=== PATIENT | female | born 1990 | race Two or more races ===

== ENCOUNTER 2020-09-21 15:24 | Emergency (ER) | payer MEDICAID, OTHER ==
[~2020-09-21] VITALS: Ht 167.6 cm; Wt 92.0 kg
[2020-09-21 15:44] VITALS: BP 133/93
[2020-09-21] MEDS ORDERED: ONDANSETRON 4MG ODT PO ONE (16:00)
[2020-09-21 16:30] LABS: CLARITY URINE CLEAR (CLEAR); COLOR URINE YELLOW (YELLOW); KETONES URINE TRACE (NEGATIVE); LEUKOCYTE ESTERASE URINE TRACE (NEGATIVE); NITRITE URINE NEGATIVE (NEGATIVE); OCCULT BLOOD URINE NEGATIVE (NEGATIVE); PROTEIN URINE NEGATIVE (NEGATIVE); SPECIFIC GRAVITY URINE 1.028 (1.005-1.030); UROBILINOGEN URINE 0.2 E.U./dL (0.2-1.0)
[2020-09-21 18:16] LABS: BASOPHILS % 0.4 % (0.0-2.0); EOSINOPHILS % 0.2 % (0.0-5.0); HEMATOCRIT. 27.8 % (36.0-48.0); HEMOGLOBIN. 8.7 g/dL (12.0-16.0); LYMPHOCYTES % 23.3 % (20.0-50.0); MEAN CORPUSCULAR HEMOGLOBIN 20.1 pg (28.0-32.0); MEAN CORPUSCULAR VOLUME 64.2 fL (81.0-99.0); MEAN PLATELET VOLUME 7.2 fl (7.4-10.4); MONOCYTES % 6.7 % (2.0-8.0); NEUTROPHILS % 69.4 % (40.0-76.0); PLATELET 348 x1000/uL (130-400); RED BLOOD CELL COUNT 4.33 mill/uL (4.2-5.4); RED CELL DISTRIBUTION WIDTH 20.4 % (11.6-14.6)
[2020-09-21 18:23] LABS: CHLORIDE 106 mEq/L (98-107)
[2020-09-21] MEDS ORDERED: PREN-118 MT (19:00)
[2020-09-21] MEDS ORDERED: FLOV44 INH (19:00)
[2020-09-21] MEDS ORDERED: CEPH125S26 MT (19:00)
[2020-09-21] MEDS ORDERED: ONDA4TAB5 MT (19:05)
[2020-09-21 19:08] LABS: PLATELET ESTIMATE NORMAL
[2020-09-21 21:13] LABS: B-HCG QUANTITATIVE 88350 mIU/mL (<3)
== END 2020-09-21 19:24 | disposition home or self-care (01) ==
LOC: ER 15:24
DX: O23.41 Unspecified infection of urinary tract in pregnancy, first trimester (principal); O26.891 Other specified pregnancy related conditions, first trimester; J45.909 Unspecified asthma, uncomplicated; Z3A.08 8 weeks gestation of pregnancy; Z98.890 Other specified postprocedural states
CPT/HCPCS: 36415; 76801; 76817; 80048; 81003; 81025; 84702; 85025; 87077; 87086; 87186; 99284; Q0162

== ENCOUNTER 2021-04-01 23:43 | Inpatient (IN) | payer MEDICAID, OTHER ==
[~2021-04-01] VITALS: Ht 168.9 cm; Wt 95.7 kg
[~2021-04-01 23:43] MED LIST: CEPH125S26 MT; FLOV44 INH; ONDA4TAB5 MT; PREN-118 MT
[2021-04-02 01:39] LABS: BASOPHILS % 0.5 % (0.0-2.0); HEMATOCRIT. 29.5 % (36.0-48.0); HEMOGLOBIN. 9.5 g/dL (12.0-16.0); MEAN PLATELET VOLUME 8.6 fl (7.4-10.4); MONOCYTES % 5.4 % (2.0-8.0); NEUTROPHILS % 71.1 % (40.0-76.0); PLATELET 245 x1000/uL (130-400); RED BLOOD CELL COUNT 4.33 mill/uL (4.2-5.4); RED CELL DISTRIBUTION WIDTH 18.5 % (11.6-14.6)
[2021-04-02 01:41] LABS: CLARITY URINE CLOUDY (CLEAR); COLOR URINE YELLOW (YELLOW); KETONES URINE NEGATIVE (NEGATIVE); LEUKOCYTE ESTERASE URINE 2+ (NEGATIVE); NITRITE URINE NEGATIVE (NEGATIVE); OCCULT BLOOD URINE NEGATIVE (NEGATIVE); PROTEIN URINE NEGATIVE (NEGATIVE); SPECIFIC GRAVITY URINE 1.023 (1.005-1.030)
[2021-04-02 01:41] LABS: CHLORIDE 108 mEq/L (98-107)
[2021-04-02 02:00] LABS: D-DIMER 0.92 mg/L FEU (<0.50); INR 0.9; PARTIAL THROMBOPLASTIN TIME 26.9 sec (23.4-31.0); PROTHROMBIN TIME 9.9 sec (9.6-11.0)
[2021-04-02 03:10] LABS: PLATELET ESTIMATE NORMAL
[2021-04-02] MEDS ORDERED: CEFAZOLIN 2,000 MG in DEXT 5% WATER 100 ML IV ONE (04:30)
[2021-04-02] MEDS ORDERED: METHYLERGONOVINE MALEATE 0.2 MG/ML IM PRN (04:30)
[2021-04-02] MEDS ORDERED: CARBOPROST TROMETHAMINE 250 MCG/ML AMPUL IM PRN (04:30)
[2021-04-02] MEDS ORDERED: CITRIC ACID/SODIUM CITRATE SOLN 30ML UDC PO ONE (04:45)
[2021-04-02 05:21] LABS: HEPATITIS B SURFACE ANTIGEN NEGATIVE
[2021-04-02] MEDS: LACTATED RINGERS 1,000 ML IV SCH ×2 (05:30→07:05)
[2021-04-02] MEDS ORDERED: CEFAZOLIN SODIUM 1000MG/VIAL ONE (10:03)
[2021-04-02] MEDS ORDERED: FENTANYL CITRATE/PF 50MCG/ML 2ML VIAL ONE (10:03)
[2021-04-02] MEDS ORDERED: MORPHINE SULFATE/PF 1MG/ML 10ML AMP ONE (10:04)
[2021-04-02] MEDS ORDERED: MIDAZOLAM HCL 2 MG/2 ML VIAL ONE (10:26)
[2021-04-02] MEDS ORDERED: PHENYLEPHRINE HCL 10 MG/ML 1ML (IV VIAL) IV ONE (10:28)
[2021-04-02] MEDS ORDERED: TRANEXAMIC ACID 1,000 MG/10 ML IV ONE (10:30)
[2021-04-02] MEDS ORDERED: TRANEXAMIC ACID 1,000 MG in SODIUM CHLORIDE 0.9% 100 ML IV NR (10:45)
[2021-04-02] MEDS ORDERED: ONDANSETRON HCL 4MG/2ML INJ IV PRN (11:15)
[2021-04-02] MEDS ORDERED: MEPERIDINE HCL/PF 25MG/ML CPJ IV PRN (11:15)
[2021-04-02] MEDS ORDERED: BUTORPHANOL TARTRATE 2 MG/ML VIAL IV PRN (11:15)
[2021-04-02] MEDS ORDERED: LABETALOL 5MG/ML SYR 20 MG/4 ML SYRINGE IV PRN (11:15)
[2021-04-02] MEDS ORDERED: HYDROMORPHONE HCL/PF 2MG/ML CPJ IV PRN (11:15)
[2021-04-02] MEDS ORDERED: DIPHENHYDRAMINE 25MG CAPSULE PO PRN (11:15)
[2021-04-02] MEDS ORDERED: KETOROLAC 30MG/ML VIAL IV PRN ×2 (11:15→11:45)
[2021-04-02] MEDS ORDERED: MAGNESIUM 20 G PREMIX (L & D) 500 ML IV SCH (11:30)
[2021-04-02] MEDS ORDERED: BISACODYL 10MG SUPP PR PRN (11:45)
[2021-04-02] MEDS ORDERED: RHO(D) IMMUNE GLOBULIN 300 MCG/SYR IM PRN (11:45)
[2021-04-02] MEDS ORDERED: IBUPROFEN 400MG TABLET PO PRN (11:45)
[2021-04-02] MEDS ORDERED: DEXT 5%/LR + PITOCIN 20UNITS/L 1,000 ML IV SCH (11:45)
[2021-04-02] MEDS ORDERED: DEXT 5%/LR + PITOCIN 20UNITS/L 1,000 ML IV ONE (11:53)
[2021-04-02 13:01] LABS: *BENZODIAZEPINES SCREEN URINE NEGATIVE (NEGATIVE); *COCAINE SCREEN URINE NEGATIVE (NEGATIVE)
[2021-04-02 13:02] LABS: *BARBITURATES SCREEN URINE NEGATIVE (NEGATIVE); METHADONE URINE SCREEN NEGATIVE (NEGATIVE); OPIATES URINE SCREEN NEGATIVE (NEGATIVE); PHENCYCLIDINE URINE SCREEN NEGATIVE (NEGATIVE)
[2021-04-02 14:05] LABS: *AMPHETAMINES SCREEN URINE PRESUMTIVE POSITIVE (NEGATIVE); CANNABINOID URINE SCREEN PRESUMTIVE POSITIVE (NEGATIVE)
[2021-04-02 14:50] LABS: BASOPHILS % 0.3 % (0.0-2.0); HEMATOCRIT. 25.3 % (36.0-48.0); HEMOGLOBIN. 7.8 g/dL (12.0-16.0); LYMPHOCYTES % 11.6 % (20.0-50.0); MEAN CORPUSCULAR HEMOGLOBIN 21.5 pg (28.0-32.0); MEAN CORPUSCULAR VOLUME 70.1 fL (81.0-99.0); MEAN PLATELET VOLUME 8.6 fl (7.4-10.4); NEUTROPHILS % 85.1 % (40.0-76.0); PLATELET 188 x1000/uL (130-400); RED BLOOD CELL COUNT 3.61 mill/uL (4.2-5.4); RED CELL DISTRIBUTION WIDTH 18.9 % (11.6-14.6)
[2021-04-02 15:30] VITALS: BP 131/75
[2021-04-02 16:00] VITALS: BP 129/72
[2021-04-02 19:45] VITALS: BP 134/88
[2021-04-02 23:45] VITALS: BP 130/86
[2021-04-03 04:01] VITALS: BP 132/86
[2021-04-03 06:59] LABS: BASOPHILS % 0.3 % (0.0-2.0); EOSINOPHILS % 0.1 % (0.0-5.0); HEMATOCRIT. 23.5 % (36.0-48.0); HEMOGLOBIN. 7.5 g/dL (12.0-16.0); LYMPHOCYTES % 17.6 % (20.0-50.0); MEAN CORPUSCULAR VOLUME 68.5 fL (81.0-99.0); MEAN PLATELET VOLUME 8.6 fl (7.4-10.4); MONOCYTES % 5.1 % (2.0-8.0); NEUTROPHILS % 76.9 % (40.0-76.0); PLATELET 183 x1000/uL (130-400); RED BLOOD CELL COUNT 3.43 mill/uL (4.2-5.4); RED CELL DISTRIBUTION WIDTH 18.6 % (11.6-14.6)
[2021-04-03 07:30] VITALS: BP 134/72
[2021-04-03] MEDS: FERROUS SULFATE 325MG TABLET PO SCH ×2 (08:19→16:16)
[2021-04-03] MEDS: IBUPROFEN 800MG TABLET PO PRN ×3 (08:20→20:58)
[2021-04-03] MEDS: PRENATAL VIT/FE FUMARATE/FA TABLET PO SCH (08:20)
[2021-04-03 16:35] VITALS: BP 154/93
[2021-04-03 21:10] VITALS: BP 146/83
[2021-04-04] MEDS: IBUPROFEN 800MG TABLET PO PRN ×3 (03:54→19:56)
[2021-04-04 04:00] VITALS: BP 141/87
[2021-04-04 09:20] VITALS: BP 144/94
[2021-04-04] MEDS: PRENATAL VIT/FE FUMARATE/FA TABLET PO SCH (09:51)
[2021-04-04] MEDS: FERROUS SULFATE 325MG TABLET PO SCH (09:51)
[2021-04-04 16:00] VITALS: BP 141/84
[2021-04-04 19:50] VITALS: BP 141/86
[2021-04-05] MEDS ORDERED: FERR325T23 PO (06:26)
[2021-04-05] MEDS ORDERED: IBUP-2030 PO (06:26)
[2021-04-05] MEDS ORDERED: LABETALOL HCL 200MG TABLET PO SCH (09:00)
[2021-04-05 09:23] VITALS: BP 141/86
[2021-04-05] MEDS: IBUPROFEN 800MG TABLET PO PRN (09:23)
[2021-04-05] MEDS: FERROUS SULFATE 325MG TABLET PO SCH (09:23)
[2021-04-05] MEDS: PRENATAL VIT/FE FUMARATE/FA TABLET PO SCH (09:23)
[2021-04-11 17:09] LABS: AMPHETAMINE CONF URINE Positive (.); CANNABINOID CONFIRMATION URINE Positive (.)
== END 2021-04-05 13:35 | disposition home or self-care (01) | DRG 540 ==
LOC: 8 EST LDRP 23:43 → OBSVTOIN 23:43 → 8EST 04-02 16:49
PROVIDERS: ADMIT Obstetrics & Gynecology; ATTEND Obstetrics & Gynecology
PROC: 10D00Z1 Extraction of Products of Conception, Low, Open Approach (ICD-10-PCS; principal; 2021-04-02)
DX: O13.4 Gestational [pregnancy-induced] hypertension without significant proteinuria, complicating childbirth (principal); O99.324 Drug use complicating childbirth; R56.9 Unspecified convulsions; O34.211 Maternal care for low transverse scar from previous cesarean delivery; O14.94 Unspecified pre-eclampsia, complicating childbirth; O99.03 Anemia complicating the puerperium; F12.10 Cannabis abuse, uncomplicated; F15.10 Other stimulant abuse, uncomplicated; Z37.0 Single live birth; Z3A.37 37 weeks gestation of pregnancy; O99.354 Diseases of the nervous system complicating childbirth; Z20.822 Contact with and (suspected) exposure to COVID-19
CPT/HCPCS: 36415; 76805; 76818; 80053; 80305; 80349; 81003; 84550; 85025; 85379; 85384; 86592; 86593; 86703; 86762; 86780; 86850; 86900; 86920; 87340; 87426; 88307; 99281; J0690; J2250; J2274; J2370; J2590; J3010; J7050; J7060; J7120; A4315

== ENCOUNTER 2021-06-26 22:51 | Inpatient (IN) | payer MEDICAID ==
[~2021-06-26] VITALS: Ht 170.2 cm; Wt 84.5 kg
[~2021-06-26 22:51] MED LIST changes: -CEPH125S26 MT; +FERR325T23 PO; +IBUP-2030 PO
[2021-06-26] MEDS ORDERED: ONDANSETRON HCL 4MG/2ML INJ IV STA (23:17)
[2021-06-26] MEDS ORDERED: MORPHINE SULFATE 4 MG/ML CPJ (NOT FOR IM USE) IV STA (23:17)
[2021-06-26] MEDS ORDERED: SODIUM CHLORIDE 0.9% 1,000 ML IV ONE (23:30)
[2021-06-26] MEDS ORDERED: MORPHINE SULFATE 2 MG/ML CPJ (NOT FOR IM USE) IV NR (23:43)
[2021-06-26 23:48] LABS: BASOPHILS % 0.7 % (0.0-2.0); HEMATOCRIT. 33.5 % (36.0-48.0); HEMOGLOBIN. 10.2 g/dL (12.0-16.0); MEAN CORPUSCULAR HEMOGLOBIN 19.6 pg (28.0-32.0); MEAN CORPUSCULAR VOLUME 64.1 fL (81.0-99.0); MEAN PLATELET VOLUME 7.9 fl (7.4-10.4); MONOCYTES % 5.4 % (2.0-8.0); NEUTROPHILS % 72.9 % (40.0-76.0); PLATELET 459 x1000/uL (130-400); RED BLOOD CELL COUNT 5.23 mill/uL (4.2-5.4); RED CELL DISTRIBUTION WIDTH 19.7 % (11.6-14.6)
[2021-06-26 23:55] LABS: CHLORIDE 109 mEq/L (98-107)
[2021-06-26 23:57] LABS: INR 1.2; PROTHROMBIN TIME 12.9 sec (9.6-11.0)
[2021-06-26 23:59] LABS: BG BASE EXCESS 2.7 mmol/L (-2.0-2.0); BG CARBOXYHEMOGLOBIN 0.7 % (0.5-1.5); BG DEOXYHEMOGLOBIN 50.1 % (0.0-5.0); BG FRACTION INSPIRED OXYGEN 21; BG HCO3 ACT 27.6 mmol/L (22.0-26.0); BG METHEMOGLOBIN 0.4 % (0.0-1.5); BG OXYGEN SATURATION 49.3 % (92.0-98.5); BG OXYHEMOGLOBIN 48.8 % (94.0-97.0); BG PCO2 43.6 mmHg (35.0-45.0); BG PH 7.419 (7.350-7.450); BG PO2 < 30.3 mmHg (75.0-100.0); BG SAMPLE SITE RIGHT RADIAL; BG TOTAL HEMOGLOBIN 11.1 g/dL (12.0-18.0); BG VENT MODE ROOM AIR
[2021-06-27 00:07] LABS: CLARITY URINE TURBID (CLEAR); COLOR URINE DARK YELLOW (YELLOW); KETONES URINE NEGATIVE (NEGATIVE); LEUKOCYTE ESTERASE URINE TRACE (NEGATIVE); NITRITE URINE NEGATIVE (NEGATIVE); OCCULT BLOOD URINE NEGATIVE (NEGATIVE); PROTEIN URINE 2+ (NEGATIVE); SPECIFIC GRAVITY URINE 1.027 (1.005-1.030)
[2021-06-27 00:08] LABS: HCG SCREEN NEGATIVE
[2021-06-27] MEDS ORDERED: FUROSEMIDE 20MG/2ML VIAL IVP ONE (01:00)
[2021-06-27 02:18] LABS: PLATELET ESTIMATE INCREASED
[2021-06-27] MEDS ORDERED: ACETAMINOPHEN 325MG TABLET PO PRN (07:45)
[2021-06-27] MEDS ORDERED: ONDANSETRON HCL 4MG/2ML INJ IV PRN (07:45)
[2021-06-27] MEDS ORDERED: DIATR MEGLU/DIATRIZOATE SOLN 30ML PO SCH (07:45)
[2021-06-27] MEDS: FUROSEMIDE 20MG/2ML VIAL IVP SCH (11:46)
[2021-06-27 12:57] LABS: UCG SCREEN NEGATIVE
[2021-06-27 14:09] VITALS: BP 136/82
[2021-06-27 14:21] VITALS: BP 136/82
[2021-06-27 16:00] VITALS: BP 132/94
[2021-06-27] MEDS ORDERED: IPRATROPIUM/ALBUTEROL 0.5-3(2.5)MG/3ML NEB HHN PRN (16:15)
[2021-06-27] MEDS: GUAIFENESIN-DM 200MG-20MG/10ML UDC PO PRN (16:45)
[2021-06-27] MEDS: HYDROCODONE/ACETAMINOPHEN 5/325MG TABLET PO PRN (17:01)
[2021-06-27] MEDS ORDERED: IOHEXOL-300 100 ML BOTTLE ONE (17:24)
[2021-06-27 20:00] VITALS: BP 141/84
[2021-06-27] MEDS: IPRATROPIUM/ALBUTEROL 0.5-3(2.5)MG/3ML NEB HHN SCH ×2 (20:50→22:28)
[2021-06-27] MEDS: BUDESONIDE 0.5MG/2ML NEB HHN SCH ×2 (20:50→22:28)
[2021-06-27] MEDS ORDERED: NALOXONE HCL 0.4MG/ML VIAL IV PRN (23:30)
[2021-06-28] VITALS: BP 132/83
[2021-06-28] MEDS: IPRATROPIUM/ALBUTEROL 0.5-3(2.5)MG/3ML NEB HHN SCH ×3 (01:04→22:13)
[2021-06-28 04:00] VITALS: BP 141/87
[2021-06-28 08:00] VITALS: BP 114/82
[2021-06-28] MEDS: FUROSEMIDE 20MG/2ML VIAL IVP SCH (08:41)
[2021-06-28] MEDS: GUAIFENESIN-DM 200MG-20MG/10ML UDC PO PRN ×2 (08:41→16:43)
[2021-06-28] MEDS: ACETAMINOPHEN 325MG TABLET PO PRN ×2 (08:42→16:44)
[2021-06-28] MEDS: BUDESONIDE 0.5MG/2ML NEB HHN SCH ×2 (11:28→22:13)
[2021-06-28] MEDS: FUROSEMIDE 40MG/4ML VIAL IVP SCH ×2 (11:37→16:43)
[2021-06-28] MEDS: SPIRONOLACTONE 25MG TABLET PO SCH (11:38)
[2021-06-28 12:00] VITALS: BP 126/88
[2021-06-28 12:21] LABS: EOSINOPHILS % 0.2 % (0.0-5.0); HEMATOCRIT. 30.7 % (36.0-48.0); HEMOGLOBIN. 9.3 g/dL (12.0-16.0); LYMPHOCYTES % 22.3 % (20.0-50.0); MEAN CORPUSCULAR HEMOGLOBIN 19.6 pg (28.0-32.0); MEAN CORPUSCULAR VOLUME 64.9 fL (81.0-99.0); MONOCYTES % 5.8 % (2.0-8.0); NEUTROPHILS % 70.7 % (40.0-76.0); PLATELET 366 x1000/uL (130-400); RED BLOOD CELL COUNT 4.73 mill/uL (4.2-5.4); RED CELL DISTRIBUTION WIDTH 19.3 % (11.6-14.6)
[2021-06-28 12:28] LABS: CHLORIDE 105 mEq/L (98-107)
[2021-06-28 12:33] LABS: PHOSPHORUS 3.9 mg/dL (2.5-4.9)
[2021-06-28 14:56] LABS: METHADONE URINE SCREEN NEGATIVE (NEGATIVE); PHENCYCLIDINE URINE SCREEN NEGATIVE (NEGATIVE)
[2021-06-28 14:57] LABS: *BARBITURATES SCREEN URINE NEGATIVE (NEGATIVE); *BENZODIAZEPINES SCREEN URINE NEGATIVE (NEGATIVE); *COCAINE SCREEN URINE NEGATIVE (NEGATIVE)
[2021-06-28 15:11] LABS: *AMPHETAMINES SCREEN URINE PRESUMTIVE POSITIVE (NEGATIVE); CANNABINOID URINE SCREEN PRESUMTIVE POSITIVE (NEGATIVE); OPIATES URINE SCREEN PRESUMTIVE POSITIVE (NEGATIVE)
[2021-06-28 16:00] VITALS: BP 117/72
[2021-06-28] MEDS: LOSARTAN POTASSIUM 25 MG TABLET PO SCH (17:09)
[2021-06-28 20:00] VITALS: BP 105/62
[2021-06-29] VITALS: BP 112/68
[2021-06-29 04:00] VITALS: BP 116/75
[2021-06-29] MEDS: IPRATROPIUM/ALBUTEROL 0.5-3(2.5)MG/3ML NEB HHN SCH ×2 (04:34→13:37)
[2021-06-29] MEDS: FUROSEMIDE 40MG/4ML VIAL IVP SCH ×2 (06:49→16:49)
[2021-06-29 08:00] VITALS: BP 101/54
[2021-06-29] MEDS: SPIRONOLACTONE 25MG TABLET PO SCH (08:31)
[2021-06-29] MEDS: LOSARTAN POTASSIUM 25 MG TABLET PO SCH (08:34)
[2021-06-29] MEDS: HYDROCODONE/ACETAMINOPHEN 5/325MG TABLET PO PRN (09:48)
[2021-06-29 10:44] LABS: BASOPHILS % 0.4 % (0.0-2.0); EOSINOPHILS % 0.5 % (0.0-5.0); HEMATOCRIT. 26.8 % (36.0-48.0); HEMOGLOBIN. 8.3 g/dL (12.0-16.0); LYMPHOCYTES % 17.9 % (20.0-50.0); MEAN CORPUSCULAR HEMOGLOBIN 19.8 pg (28.0-32.0); MEAN CORPUSCULAR VOLUME 64.1 fL (81.0-99.0); MEAN PLATELET VOLUME 7.9 fl (7.4-10.4); MONOCYTES % 7.4 % (2.0-8.0); NEUTROPHILS % 73.8 % (40.0-76.0); PLATELET 309 x1000/uL (130-400); RED BLOOD CELL COUNT 4.18 mill/uL (4.2-5.4); RED CELL DISTRIBUTION WIDTH 19.4 % (11.6-14.6)
[2021-06-29 10:55] LABS: CHLORIDE 104 mEq/L (98-107)
[2021-06-29 11:00] LABS: PHOSPHORUS 3.9 mg/dL (2.5-4.9)
[2021-06-29 11:01] LABS: TOTAL IRON BINDING CAPACITY 365 ug/dL (250-450)
[2021-06-29 11:18] LABS: FOLIC ACID (FOLATE) SERUM 10.4 ng/mL (>5.38)
[2021-06-29 12:00] VITALS: BP 102/63
[2021-06-29] MEDS ORDERED: ALBU18HF2 IH ×2 (13:51)
[2021-06-29] MEDS ORDERED: FLUT1AER4 INH ×2 (13:51)
[2021-06-29] MEDS ORDERED: PROM6.2514 MT ×2 (13:51)
[2021-06-29 16:00] VITALS: BP 103/48
[2021-06-29 20:00] VITALS: BP 114/68
[2021-06-30] VITALS: BP 112/53
[2021-06-30 04:00] VITALS: BP 103/63
[2021-06-30] MEDS: FUROSEMIDE 40MG/4ML VIAL IVP SCH (05:02)
[2021-06-30 08:04] VITALS: BP 105/68
[2021-06-30 08:15] LABS: BASOPHILS % 0.7 % (0.0-2.0); EOSINOPHILS % 0.5 % (0.0-5.0); HEMATOCRIT. 29.1 % (36.0-48.0); HEMOGLOBIN. 8.9 g/dL (12.0-16.0); LYMPHOCYTES % 27.7 % (20.0-50.0); MEAN CORPUSCULAR HEMOGLOBIN 19.5 pg (28.0-32.0); MEAN CORPUSCULAR VOLUME 63.6 fL (81.0-99.0); MEAN PLATELET VOLUME 8.1 fl (7.4-10.4); MONOCYTES % 8.8 % (2.0-8.0); NEUTROPHILS % 62.3 % (40.0-76.0); PLATELET 342 x1000/uL (130-400); RED BLOOD CELL COUNT 4.57 mill/uL (4.2-5.4); RED CELL DISTRIBUTION WIDTH 19.4 % (11.6-14.6)
[2021-06-30 08:37] LABS: CHLORIDE 103 mEq/L (98-107)
[2021-06-30] MEDS: IPRATROPIUM/ALBUTEROL 0.5-3(2.5)MG/3ML NEB HHN SCH ×2 (08:40→13:28)
[2021-06-30] MEDS: BUDESONIDE 0.5MG/2ML NEB HHN SCH (08:42)
[2021-06-30 08:43] LABS: PHOSPHORUS 4.2 mg/dL (2.5-4.9)
[2021-06-30] MEDS ORDERED: FERROUS SULFATE 325MG TABLET PO SCH (09:00)
[2021-06-30] MEDS: LOSARTAN POTASSIUM 25 MG TABLET PO SCH (09:00)
[2021-06-30] MEDS: SPIRONOLACTONE 25MG TABLET PO SCH (09:31)
[2021-06-30] MEDS: ACETAMINOPHEN 325MG TABLET PO PRN (09:39)
[2021-06-30 12:00] VITALS: BP 107/68
[2021-06-30] MEDS ORDERED: SPIR25TA PO (14:27)
[2021-06-30] MEDS ORDERED: LOSA25TA3 PO (14:27)
[2021-06-30] MEDS ORDERED: FURO40TA5 PO (14:27)
[2021-06-30] MEDS ORDERED: FERR-63 PO (14:27)
[2021-06-30] MEDS ORDERED: TOPUD PO (14:27)
[2021-06-30] MEDS ORDERED: ALBU18HF2 IH (14:35)
[2021-06-30] MEDS ORDERED: FLUT1AER4 INH (14:35)
[2021-06-30] MEDS ORDERED: PROM6.254 MT (14:35)
[2021-06-30 14:41] VITALS: BP 122/71
[2021-06-30] MEDS ORDERED: FUROSEMIDE 40MG TABLET PO SCH (18:00)
== END 2021-06-30 16:32 | disposition home or self-care (01) | DRG 194 ==
LOC: ER 23:20 → MICUSO 06-27 02:31 → SUPCPDRO 06-27 07:35 → 7EST 06-27 14:28
PROVIDERS: ADMIT Internal Medicine; ATTEND Internal Medicine
DX: I11.0 Hypertensive heart disease with heart failure (principal); J96.01 Acute respiratory failure with hypoxia; E87.2 Acidosis; E44.0 Moderate protein-calorie malnutrition; I27.29 Other secondary pulmonary hypertension; J45.901 Unspecified asthma with (acute) exacerbation; I31.3 Pericardial effusion (noninflammatory); I50.21 Acute systolic (congestive) heart failure; J20.9 Acute bronchitis, unspecified; F12.10 Cannabis abuse, uncomplicated; D50.9 Iron deficiency anemia, unspecified; D64.9 Anemia, unspecified; F15.10 Other stimulant abuse, uncomplicated; F17.210 Nicotine dependence, cigarettes, uncomplicated; I42.0 Dilated cardiomyopathy; I49.3 Ventricular premature depolarization; Z20.822 Contact with and (suspected) exposure to COVID-19; F19.10 Other psychoactive substance abuse, uncomplicated; R04.2 Hemoptysis; J84.9 Interstitial pulmonary disease, unspecified; Z66 Do not resuscitate; I34.0 Nonrheumatic mitral (valve) insufficiency; I36.1 Nonrheumatic tricuspid (valve) insufficiency; Z98.891 History of uterine scar from previous surgery; Z82.49 Family history of ischemic heart disease and other diseases of the circulatory system; Z79.1 Long term (current) use of non-steroidal anti-inflammatories (NSAID); Z79.899 Other long term (current) drug therapy; Z68.29 Body mass index [BMI] 29.0-29.9, adult
CPT/HCPCS: 36415; 36600; 71045; 71260; 74177; 76830; 76856; 80048; 80053; 80305; 81003; 81025; 82375; 82607; 82728; 82746; 82805; 83540; 83550; 83605; 83735; 83880; 84100; 84439; 84443; 84484; 84703; 85025; 85044; 87426; 93005; 93306; 93970; 94640; 99285; J1940; J2270; J2405; J7030; J7626; Q9967

== ENCOUNTER 2021-08-09 19:04 | Emergency (ER) | payer MEDICAID ==
[~2021-08-09] VITALS: Ht 170.2 cm; Wt 80.0 kg
[~2021-08-09 19:04] MED LIST changes: +ALBU18HF2 IH; +FERR-63 PO; -FERR325T23 PO; -FLOV44 INH; +FLUT1AER4 INH; +FURO40TA5 PO; -IBUP-2030 PO; +LOSA25TA3 PO; -ONDA4TAB5 MT; -PREN-118 MT; +PROM6.254 MT; +SPIR25TA PO; +TOPUD PO
[2021-08-09 22:05] LABS: BASOPHILS % 1.5 % (0.0-2.0); EOSINOPHILS % 0.5 % (0.0-5.0); HEMOGLOBIN. 9.7 g/dL (12.0-16.0); LYMPHOCYTES % 27.7 % (20.0-50.0); MEAN CORPUSCULAR HEMOGLOBIN 20.5 pg (28.0-32.0); MEAN CORPUSCULAR VOLUME 65.8 fL (81.0-99.0); MEAN PLATELET VOLUME 8.8 fl (7.4-10.4); MONOCYTES % 6.3 % (2.0-8.0); PLATELET 322 x1000/uL (130-400); RED BLOOD CELL COUNT 4.72 mill/uL (4.2-5.4); RED CELL DISTRIBUTION WIDTH 21.6 % (11.6-14.6)
[2021-08-09 22:10] LABS: CHLORIDE 110 mEq/L (98-107)
[2021-08-09 22:24] LABS: HCG SCREEN NEGATIVE
[2021-08-09 22:33] LABS: PLATELET ESTIMATE NORMAL
[2021-08-09] MEDS ORDERED: FUROSEMIDE 20MG/2ML VIAL IVP ONE (23:00)
[2021-08-09 23:05] LABS: *AMPHETAMINES SCREEN URINE NEGATIVE (NEGATIVE); *BARBITURATES SCREEN URINE NEGATIVE (NEGATIVE); *BENZODIAZEPINES SCREEN URINE NEGATIVE (NEGATIVE)
[2021-08-09 23:06] LABS: *COCAINE SCREEN URINE NEGATIVE (NEGATIVE); METHADONE URINE SCREEN NEGATIVE (NEGATIVE); OPIATES URINE SCREEN NEGATIVE (NEGATIVE); PHENCYCLIDINE URINE SCREEN NEGATIVE (NEGATIVE)
[2021-08-09 23:10] LABS: CANNABINOID URINE SCREEN PRESUMTIVE POSITIVE (NEGATIVE)
[2021-08-10 01:49] VITALS: BP 131/86
[2021-08-10] MEDS ORDERED: IOHEXOL-350 100 ML BOTTLE ONE (06:37)
== END 2021-08-10 01:48 | disposition home or self-care (01) ==
LOC: ER 19:04
DX: I11.0 Hypertensive heart disease with heart failure (principal); I50.9 Heart failure, unspecified; R06.02 Shortness of breath; Z98.890 Other specified postprocedural states
CPT/HCPCS: 36415; 71045; 71275; 80053; 80305; 83880; 84484; 84703; 85025; 85379; 93005; 96374; 99285; J1940; Q9967